=== PATIENT | male | born 1990 | race Two or more races ===

== ENCOUNTER 2021-07-04 16:19 | Emergency (ER) | payer SELFPAY ==
[~2021-07-04] VITALS: Ht 170.2 cm; Wt 69.4 kg
[2021-07-04 16:25] VITALS: BP 113/75
[2021-07-04] MEDS ORDERED: AMOX-277 PO (17:40)
== END 2021-07-04 17:53 | disposition home or self-care (01) ==
LOC: ER 16:19
DX: K04.7 Periapical abscess without sinus (principal); F17.210 Nicotine dependence, cigarettes, uncomplicated; F12.10 Cannabis abuse, uncomplicated